=== PATIENT | male | born 1990 | race African-American/Black ===

== ENCOUNTER 2019-01-08 11:09 | Emergency (ER) | payer SELFPAY ==
[2019-01-08 11:14] VITALS: BP 140/82
--- NOTE | 2019-01-08 11:42 | ER Document Report ---
HPI - HPI Patient complains to provider of: Dental pain Time Seen by Provider: 01/08/19 11:35 Onset: Other - 3 days Pain Level: 5 Context: Patient presents complaining of dental pain to the lower molar for the past 3 da ys. Patient denies any fever or facial swelling. Associated Symptoms: denies: Fever, Vomiting Exacerbated by: Denies Relieved by: Denies Similar symptoms previously: No Recently seen / treated by doctor: No - ROS ROS below otherwise negative: Yes Systems Reviewed and Negative: Yes All other systems reviewed and negative - CONSTITUTIONAL Constitutional: DENIES: Fever, Chills - EENT EENT: DENIES: Sore Throat, Ear Pain Notes: Dental pain - RESPIRATORY Respiratory: DENIES: Coughing - GASTROINTESTINAL Gastrointestinal: DENIES: Nausea, Patient vomiting - DERM Skin Color: Normal Skin Problems: None Past Medical History - General Information source: Patient - Social History Smoking Status: Never Smoker Chew tobacco use (# tins/day): No Frequency of alcohol use: None Drug Abuse: None Occupation: None Family History: None Patient has suicidal ideation: No Patient has homicidal ideation: No - Medical History Medical History: Negative Past Surgical History: Reports: Hx Tonsillectomy - Immunizations Immunizations up to date: No Hx Diphtheria, Pertussis, Tetanus Vaccination: Yes - within the past year per patient. Vertical Provider Document - CONSTITUTIONAL Agree With Documented VS: Yes Exam Limitations: No Limitations General Appearance: WD/WN, No Apparent Distress - INFECTION CONTROL TRAVEL OUTSIDE OF THE [place] IN LAST 30 DAYS: No - HEENT HEENT: Atraumatic, Normocephalic Mouth Diagram: 1 - tenderness, dental decay, no trismus, no abscess - NECK Neck: Normal Inspection, Supple. negative: Lymphadenopathy-Left, Lymphadenopathy-Right - RESPIRATORY Respiratory: Breath Sounds Normal, No Respiratory Distress - CARDIOVASCULAR Cardiovascular: Regular Rate, Regular Rhythm - BACK Back: Normal Inspection - MUSCULOSKELETAL/EXTREMETIES Musculoskeletal/Extremeties: MAEW - NEURO Level of Consciousness: Awake, Alert, Appropriate Motor/Sensory: No Motor Deficit - DERM Integumentary: Warm, Dry, No Rash Course - Vital Signs Vital signs: Temp Pulse Resp BP Pulse Ox 97.8 F 70 16 140/82 H 98 01/08/19 11:14 01/08/19 11:14 01/08/19 11:14 01/08/19 11:14 01/08/19 11:14 Discharge - Discharge Clinical Impression: Toothache Condition: Stable Disposition: HOME, SELF-CARE Instructions: Penicillin V K ([facility]), Toothache ([facility]), Ultram ([facility]) Additional Instructions: Return immediately for any new or worsening symptoms Followup with a dental care provider, call tomorrow to make a followup appointment Prescriptions: Naproxen [Naprosyn 250 Nmg Tablet] 1 tab PO BID #14 tablet Penicillin V Potassium [Penicillin Vk 500 mg Tablet] 500 mg PO BID #20 tablet Tramadol HCl [Ultram 50 mg Tablet] 50 mg PO ASDIR PRN #12 tablet PRN Reason: Referrals: [facility] [Provider Group] - Follow up as needed
== END 2019-01-08 11:46 | disposition home or self-care (01) ==
LOC: ER 11:09
DX: K08.9 Disorder of teeth and supporting structures, unspecified (principal)
CPT/HCPCS: 99282

== ENCOUNTER 2019-10-05 12:31 | Emergency (ER) | payer SELFPAY ==
--- NOTE | 2019-10-05 13:14 | ER Document Report ---
ED Medical Screen (RME) - General Chief Complaint: Testicular Pain Stated Complaint: ABDOMINAL PAIN Time Seen by Provider: 10/05/19 13:09 Notes: HPI: 28-year-old male presenting to the emergency department complaining of left testicular pain over the last 3 to 4 days, some increased frequency of urination. Also complaining of left lower quadrant discomfort. No fever nausea or vomiting PHYSICAL EXAMINATION: Limited exam in triage process but patient does have left testicular pain without palpable mass on palpation of the testicle. Mild tenderness into the left inguinal left lower quadrant region on palpation I have greeted and performed a rapid initial assessment of this patient. A comprehensive ED assessment and evaluation of the patient, analysis of test results and completion of medical decision making process will be conducted by an additional ED providers. TRAVEL OUTSIDE OF THE [place] IN LAST 30 DAYS: No - Related Data Allergies/Adverse Reactions: No Known Allergies Allergy (Verified 02/03/14 17:13) Past Medical History - Social History Frequency of alcohol use: Rare Drug Abuse: Marijuana Past Surgical History: Reports: Hx Tonsillectomy. Denies: Hx Appendectomy - Immunizations Immunizations up to date: No Hx Diphtheria, Pertussis, Tetanus Vaccination: Yes - within the past year per patient. Physical Exam - Vital signs Vitals: Temp Pulse Resp BP Pulse Ox 98.0 F 98 16 134/76 H 100 10/05/19 12:36 10/05/19 12:36 10/05/19 12:36 10/05/19 12:36 10/05/19 12:36 Course - Vital Signs Vital signs: Temp Pulse Resp BP Pulse Ox 98.0 F 98 16 134/76 H 100 10/05/19 12:36 10/05/19 12:36 10/05/19 12:36 10/05/19 12:36 10/05/19 12:36
[2019-10-05 14:08] LABS: HEMATOCRIT 43.3 % (37.9-51.0); HEMOGLOBIN 14.5 g/dL (13.5-17.0); MEAN CORPUSCULAR HEMOGLOBIN 29.1 pg (27.0-33.4); MEAN CORPUSCULAR HGB CONC 33.4 g/dL (32.0-36.0); MEAN CORPUSCULAR VOLUME 87 fl (80-97); PLATELET COUNT 207 10^3/uL (150-450); RED BLOOD COUNT 4.98 10^6/uL (4.35-5.55); RED CELL DISTRIBUTION WIDTH 13.2 % (11.5-14.0); WHITE BLOOD COUNT 21.2 10^3/uL (4.0-10.5)
[2019-10-05 14:17] LABS: ALBUMIN 4.5 g/dL (3.5-5.0); ALKALINE PHOSPHATASE 62 U/L (38-126); ANION GAP 5 (5-19); ASPARTATE AMINO TRANSFERASE 20 U/L (17-59); BILIRUBIN,TOTAL 1.3 mg/dL (0.2-1.3); BLOOD UREA NITROGEN 16 mg/dL (7-20); CALCIUM 10.2 mg/dL (8.4-10.2); CARBON DIOXIDE 30 mmol/L (22-30); CHLORIDE 103 mmol/L (98-107); GLUCOSE 99 mg/dL (75-110); POTASSIUM 3.8 mmol/L (3.6-5.0); TOTAL PROTEIN 7.9 g/dL (6.3-8.2)
--- NOTE | 2019-10-05 14:27 | RADIOLOGY REPORT (SQ) ---
EXAM DESCRIPTION: U/S SCROTUM W/DOPPLER IMAGES COMPLETED DATE/TIME: 10/05/2019 2:13 pm REASON FOR STUDY: left testicular pain COMPARISON: None. TECHNIQUE: Static and realtime smith scale imaging of the scrotum and testes. Selected color Doppler and spectral images recorded to document blood flow. LIMITATIONS: None. FINDINGS: RIGHT: TESTICLE: Normal size. Normal echotexture. Normal blood flow. No mass. EPIDIDYMIS: 9 mm epididymal head cyst. HYDROCELE OR VARICOCELE: Small right hydrocele. Small right varicocele. HERNIA OR EXTRA-TESTICULAR MASS: No. OTHER: No other significant finding. LEFT: TESTICLE: Normal size. Mildly heterogeneous echotexture and increased blood flow. No mass. EPIDIDYMIS: Mildly enlarged with increased vascularity. HYDROCELE OR VARICOCELE: No hydrocele. Small varicocele. HERNIA OR EXTRA-TESTICULAR MASS: No. OTHER: No other significant finding. IMPRESSION: Findings most suggesting left epididymo-orchitis. Small bilateral varicocele. TECHNICAL DOCUMENTATION: JOB ID: [id number] 2010 [employer]- All Rights Reserved Reading location - IP/workstation name: [email or web address]
[2019-10-05 14:48] LABS: ABSOLUTE LYMPHOCYTES# (MANUAL) 2.8 10^3/uL (0.5-4.7); ABSOLUTE MONOCYTES # (MANUAL) 1.7 10^3/uL (0.1-1.4); BASOPHILS % (MANUAL) 0 % (0-2); EOSINOPHILS % (MANUAL) 0 % (0-6); LYMPHOCYTES % (MANUAL) 13 % (13-45); MONOCYTES % (MANUAL) 8 % (3-13); SEGMENTED NEUTROPHILS % (MAN) 79 % (42-78); TOTAL CELLS COUNTED 100
[2019-10-05 14:49] LABS: PLATELET COMMENT ADEQUATE; RBC MORPHOLOGY COMMENT NORMO-CYTIC/CHROMIC
[2019-10-05 16:06] LABS: APPEARANCE,URINE CLEAR; BILIRUBIN,URINE NEGATIVE (NEGATIVE); COLOR,URINE YELLOW; GLUCOSE, URINE NEGATIVE (NEGATIVE); KETONES,URINE NEGATIVE (NEGATIVE); LEUKOCYTE ESTERASE,URINE TRACE (NEGATIVE); NITRITE,URINE NEGATIVE (NEGATIVE); PROTEIN,URINE 100 mg/dL (NEGATIVE); URINE SPECIFIC GRAVITY 1.029
--- NOTE | 2019-10-05 16:10 | ER Document Report ---
ED GI/ - General Chief Complaint: Testicular Pain Stated Complaint: ABDOMINAL PAIN Time Seen by Provider: 10/05/19 13:09 Primary Care Provider: SULEIMAN GOTTI MD [Primary Care Provider] - Follow up as needed Notes: This 28-year-old man presents to the emergency department with a complaint of left testicular pain. States his symptoms began 3 to 4 days ago. He denies fever, he denies worsening pain. He also denies dysuria. He denies a prior history of similar episode. He notes, no unprotected sex with new partners or likelihood of STD. TRAVEL OUTSIDE OF THE [place] IN LAST 30 DAYS: No - Related Data Allergies/Adverse Reactions: No Known Allergies Allergy (Verified 02/03/14 17:13) Past Medical History - Social History Smoking Status: Never Smoker Frequency of alcohol use: Rare Drug Abuse: Marijuana Family History: None Past Surgical History: Reports: Hx Tonsillectomy. Denies: Hx Appendectomy - Immunizations Immunizations up to date: No Hx Diphtheria, Pertussis, Tetanus Vaccination: Yes - within the past year per patient. Review of Systems - Review of Systems Notes: Constitutional: Negative for fever. HENT: Negative for sore throat. Eyes: Negative for visual changes. Cardiovascular: Negative for chest pain. Respiratory: Negative for shortness of breath. Gastrointestinal: Negative for abdominal pain, vomiting or diarrhea. Genitourinary: + Left testicular pain Musculoskeletal: Negative for back pain. Skin: Negative for rash. Neurological: Negative for headaches, weakness or numbness. 10 point ROS negative except as marked above and in HPI. Physical Exam - Vital signs Vitals: Temp Pulse Resp BP Pulse Ox 98.0 F 98 16 134/76 H 100 10/05/19 12:36 10/05/19 12:36 10/05/19 12:36 10/05/19 12:36 10/05/19 12:36 - Notes Notes: PHYSICAL EXAMINATION: Physical Exam: General: Well-nourished well-developed 28-year-old in no acute distress HEENT: NC/AT, pupils equal round and reactive to light, MM moist,nares clear, oropharynx clear, airway patent Neck: supple, no adenopathy, no masses. Good range of motion Lungs: clear, no wheezing, no rales no rhonchi CVS: Regular rate and rhythm no murmur gallop or rub Abdomen: Soft, active, nontender, no masses, no hepatosplenomegaly : Left testicular tenderness, mild swelling right side nontender Ext: No edema, clubbing or cyanosis. Neuro: Alert and responsive, moving all 4 extremities on command, cranial nerves intact, no focal findings Skin: Intact no open lesions, no rash PSYCH: Normal mood, normal affect. Course - Re-evaluation Re-evalutation: 10/05/19 16:14 Patient had a ultrasound performed of the scrotum, it reveals no torsion, left testicular orchitis with epididymitis. I explained this finding to the patient I have asked that he get the urine specimen that we can follow. He rates his pain a 4/10. I am giving him a dose of ibuprofen 800 mg for pain. He will be treated with antibiotics I have instructed him to get an athletic supporter and to use cool compresses to the area if the pain is increasing. 10/05/19 17:44 Given a leukocytosis, the patient is given Rocephin 1 g IM, he is being treated with doxycycline as an outpatient. - Vital Signs Vital signs: Temp Pulse Resp BP Pulse Ox 98.5 F 96 18 128/73 H 99 10/05/19 18:33 10/05/19 18:28 10/05/19 18:28 10/05/19 18:28 10/05/19 18:28 - Laboratory Result Diagrams: 10/05/19 13:30 10/05/19 13:30 Laboratory results interpreted by me: 10/05/19 10/05/19 10/05/19 13:30 15:46 15:46 WBC 21.2 H Seg Neuts % (Manual) 79 H Abs Neuts (Manual) 16.7 H Abs Monocytes (Manual) 1.7 H Urine Protein 100 H Urine Urobilinogen 4.0 H Ur Leukocyte Esterase TRACE H Chlamydia DNA (PCR) DETECTED H Discharge - Discharge Clinical Impression: Orchitis, left, Left epididymitis, Left testicular pain, Chlamydia Leukocytosis Qualifiers: Leukocytosis type: unspecified Qualified Code(s): D72.829 - Elevated white blood cell count, unspecified Condition: Good Disposition: HOME, SELF-CARE Instructions: Anti-Inflammatory Medication ([facility]), Chlamydia ([facility]), Doxycycline ([facility]), Epididymitis ([facility]) Additional Instructions: You were seen in the emergency department today with left testicular pain. You were diagnosed with infection in the epididymis and in the left testicle. Your test for chlamydia was positive. You should contact your sexual partners such that they may also get treated. Wearing an athletic supporter will take some of the pressure off of your testicular region and decrease the pain. Ibuprofen can be used for the inflammation and discomfort. You are given a prescription for doxycycline please take that medication as prescribed. Follow-up with the urologist if needed If your symptoms are worsening or you have other concerns you may return to the emergency department HOME CARE INSTRUCTIONS & INFORMATION: Thank you for choosing us for your medical needs. We hope you're satisfied with the care you received. After you leave, you must properly care for your problem and, at the same time, observe its progress. Any condition can change. Some illnesses can change rapidly over hours or days. If your condition worsens, return to the Emergency Department or see your physician promptly. ABOUT YOUR X-RAYS AND EKG'S: If you had an EKG or X-rays taken, they have been read by the Emergency Physician. The X-rays and EKG's will also be read by a Radiologist or Carnival Worker within 24 hours. If discrepancies are noted, you will be notified by telephone. Please be certain the ED has a correct telephone number & address where you can be reached. Also, realize that some fractures or abnormalities do not show up on initial X-rays. If your symptoms continue, see your physician. ABOUT YOUR LABORATORY TEST: If you had laboratory tests, the results have been reviewed by the Emergency Physician. Some test results (for example cultures) may not be available for several days. You will be contacted if any test result shows you need additional treatment. Please be certain the ED has a correct telephone number and address where you can be reached. ABOUT YOUR MEDICATIONS: You will receive instructions on how to take your medicine on the prescription label you receive. Additional information may be provided by the Pharmacy. If you have questions afterwards, call the ED for clarification or further instructions. Some prescribed medications may cause drowsiness. Do not perform tasks such as driving a car or operating machinery without consulting your Pharmacist. If you feel you need a refill of pain medication, your condition will need re-evaluation. Please do not call for a refill of any medication. ABOUT YOUR SIGNATURE: Signature of this document acknowledges to followin. Understanding that you received emergency treatment and that you may be released before al medical problems are known or treated. Please be certain the ED has a correct phone number & address where you can be reached. 2. Acknowledgement that you will arrange for follow-up care as recommended. 3. Authorization for the Emergency Physician to provide information to your follow-up Physician in order to maximize your care. AT ANY TIME, IF YOUR SYMPTOMS CHANGE SIGNIFICANTLY OR WORSEN OR YOU DEVELOP NEW SYMPTOMS, RETURN TO THE EMERGENCY DEPARTMENT IMMEDIATELY FOR RE-EVALUATION. OUR GOAL IS TO PROVIDE EXCELLENT MEDICAL CARE! WE HOPE THAT WE HAVE MET YOUR EXPECTATIONS DURING YOUR EMERGENCY DEPARTMENT VISIT AND THAT YOU FEEL YOU HAVE RECEIVED EXCELLENT CARE! Prescriptions: Doxycycline Monohydrate 100 mg PO BID #20 capsule Ibuprofen [Motrin 800 mg Tablet] 800 mg PO Q8H PRN #30 tab PRN Reason: Referrals: SULEIMAN GOTTI MD [Primary Care Provider] - Follow up as needed
[2019-10-05] MEDS ORDERED: ACETAMINOPHEN 325 MG TABLET PO ONE (16:11)
[2019-10-05] MEDS ORDERED: LIDOCAINE 1% INJ (10 MG/ML) 10 ML MDV INJ ONE (17:09)
[2019-10-05] MEDS ORDERED: CEFTRIAXONE INJ 250 MG VIAL IM ONE (17:09)
[2019-10-05 17:29] LABS: CHLAM PCR DETECTED (NOT DETECT)
[2019-10-05] MEDS ORDERED: CEFTRIAXONE INJ 1000 MG VIAL IM ONE ×2 (17:46→18:00)
[2019-10-05 18:33] VITALS: BP 128/73
== END 2019-10-05 18:33 | disposition home or self-care (01) ==
LOC: ER 12:31
DX: N45.3 Epididymo-orchitis (principal); A74.9 Chlamydial infection, unspecified; I86.1 Scrotal varices; F12.10 Cannabis abuse, uncomplicated
CPT/HCPCS: 99284; 96372; 36415; 87086; 85025; 80053; 81001; 87491; 87591; 76870; 93976; J0696